=== PATIENT | male | born 1935 | race Caucasian/White ===

== ENCOUNTER 2018-07-20 15:15 | Inpatient (IN) | payer MEDICARE, OTHER | END 2018-07-24 17:40 | LOC: EDH 15:15 → EDHIP 16:54 → 3DH 19:05 | DX: J44.1 Chronic obstructive pulmonary disease with (acute) exacerbation (principal); J18.9 Pneumonia, unspecified organism; I50.22 Chronic systolic (congestive) heart failure; E44.1 Mild protein-calorie malnutrition; J44.0 Chronic obstructive pulmonary disease with (acute) lower respiratory infection; I49.3 Ventricular premature depolarization; E66.9 Obesity, unspecified; Z68.35 Body mass index [BMI] 35.0-35.9, adult; I11.0 Hypertensive heart disease with heart failure ==

== ENCOUNTER 2019-09-13 16:30 | Emergency (ER) | payer MEDICARE ==
[~2019-09-13 16:30] MED LIST: ASPI-555 PO; ATOR20TA65 PO; CLOP75TA32 PO; FURO80TA3 PO; LISI-613 PO; SERT50TA12 PO; SILO8CAP2 PO
== END 2019-09-13 17:29 | disposition home or self-care (01) ==
LOC: EDH 16:30
DX: L89.119 Pressure ulcer of right upper back, unspecified stage (principal); I11.0 Hypertensive heart disease with heart failure; I50.9 Heart failure, unspecified; E11.9 Type 2 diabetes mellitus without complications; J44.9 Chronic obstructive pulmonary disease, unspecified; E78.5 Hyperlipidemia, unspecified
CPT/HCPCS: 99282